=== PATIENT | female | born 1970 | race Asian ===

== ENCOUNTER 2024-02-07 07:30 | Day surgery (SDC) | payer OTHER ==
[2024-02-04 13:00] VITALS: BMI 20.4
[2024-02-07 09:01] VITALS: TEMP 97
[2024-02-07 09:15] VITALS: PULSE 62; RESP 18
[2024-02-07 09:17] VITALS: BP 101/67
== END 2024-02-07 09:29 | disposition home or self-care (01) ==
LOC: FASU-ENDO 07:30
PROVIDERS: ATTEND Internal Medicine Gastroenterology
PROC: 0DJD8ZZ Inspection of Lower Intestinal Tract, Via Natural or Artificial Opening Endoscopic (ICD-10-PCS; principal; 2024-02-07 08:38)
DX: Z12.11 Encounter for screening for malignant neoplasm of colon (principal)